=== PATIENT | female | born 1990 | race Caucasian/White ===

== ENCOUNTER 2016-12-11 00:02 | Emergency (ER) | payer OTHER ==
[~2016-12-11] VITALS: Ht 157.5 cm; Wt 72.2 kg
[~2016-12-11 00:02] MED LIST: ACET-1256 PO; DOCU-94 PO; DOXY100C2 PO; FRRS300 PO
[2016-12-11 00:09] VITALS: TEMP 36.6; Ht 157.5 cm; Wt 72.2 kg
[2016-12-11] MEDS ORDERED: ONDANSETRON INJ 2 MG/ML 2 ML VIAL IV STA (00:22)
[2016-12-11] MEDS ORDERED: SODIUM CHLORIDE 0.9% 1000ML 1,000 ML IV STA ×2 (00:22)
[2016-12-11 00:44] LABS: BASO % 0.3 %; BASO ABS # 0.03 K/uL (0-0.2); COMPLETE YES; EOS % 1.2 %; HEMATOCRIT 38.8 % (37-47); IG% 0.3 %; LYMPH % 32.5 %; MEAN CELL VOLUME 80.8 fL (80-100); MEAN CORPUSCULAR HEMOGLOBIN 27.7 pg (25-34); MEAN CORPUSCULAR HGB CONC 34.3 g/dl (32-36); MEAN PLATELET VOLUME 9.9 fL (7.4-10.4); MONO % 5.8 %; NEUT % 59.9 %; PLATELET COUNT 233 K/uL (130-400); WHITE BLOOD COUNT 9.53 K/uL (4.8-10.8)
[2016-12-11 01:20] LABS: MANUAL MICROSCOPIC REQUIRED? YES; URINE APPEARANCE TURBID (CLEAR); URINE BILIRUBIN NEG (NEG); URINE COLOR RED; URINE NITRITE NEG (NEG); URINE SPECIFIC GRAVITY 1.025 (1.000-1.030); UROBILINOGEN NEG (NEG)
[2016-12-11 01:23] LABS: BUN/CREATININE RATIO 8.5 (10-20); CALCIUM 9.3 mg/dl (8.5-10.1); CREATININE 0.63 mg/dl (0.60-1.20); POTASSIUM 3.3 mmol/L (3.5-5.1)
[2016-12-11 01:28] LABS: REVIEW REQ? NO
[2016-12-11 01:35] LABS: URINE RBC >30 /hpf (0-4)
[2016-12-11 01:37] LABS: URINE BACTERIA NEG (NEG); URINE WBC >30 /hpf (0-5)
[2016-12-11 01:38] LABS: ZZUR CULT IF INDIC CLEAN CATCH YES
--- NOTE | 2016-12-11 02:57 | EMERGENCY ROOM VISIT NOTE ---
History First contact with patient: 00:13 Chief Complaint: VAGINAL BLEEDING Stated Complaint: MISS CARRAGE History of Present Illness The patient is a 26 year old female who presents to the Emergency Room with complaints of vaginal bleeding with cramping for the past few hours who is currently approximately 6 weeks . She had a miscarriage a few months ago. She now follows at [facility]. Patient describe the pain as cramping , ranging in severity 3 out of 10. Nothing makes it better or worse. Patient complains of nausea without vomiting or diarrhea. Patient brought some of the blood products in for analysis. Patient denies chest pain, dyspnea, fever, chills, vomiting, diarrhea, back pain, urinary symptoms. No known bleeding disorders. Review of Systems See HPI for pertinent positives & negatives. A total of 10 systems reviewed and were otherwise negative. Past Medical/Surgical History Medical Problems: (1) Incomplete (2) Postop check Social History Smoking Status: Never Smoker Alcohol Use: none Drug Use: none Marital Status: in relationship Housing Status: lives with significant other Occupation Status: [employer] student Current/Historical Medications No Active Prescriptions or Reported Meds Allergies Coded Allergies: No Known Allergies (Unverified , 12/11/16) Physical Exam Vital Signs Date Time Temp Pulse Resp B/P Pulse Ox O2 Delivery O2 Flow Rate FiO2 12/11/16 01:55 85 16 103/59 100 Room Air 12/11/16 00:09 36.6 103 18 106/72 100 Room Air Physical Exam VITALS: Vitals are noted on the nurse's note and reviewed by myself. Vital signs stable. GENERAL: Pleasant tearful female, in no acute distress, nondiaphoretic, well- developed well-nourished. SKIN: Capillary reflex less than 2 seconds. HEENT: Normocephalic. PERRLA. EOMI. Nares patent. Mucous membranes moist. Neck is supple without nuchal rigidity. HEART: Regular rate and rhythm without murmurs gallops or rubs. LUNGS: Clear to auscultation bilaterally without wheezes, rales or rhonchi. No retractions or accessory muscle use. ABDOMEN: Positive bowel sounds x 4. Normal tympanic percussion. Soft, tender to palpation suprapubic area, without masses or organomegaly. Costello sign negative. No guarding or rebound tenderness. CVA tenderness exam: Normal external female genitalia, [] MUSCULOSKELETAL: No gross musculoskeletal defects. No pedal edema. NEURO: Patient was alert and oriented to person place and time. Normal sensation to light and sharp touch. No focal neurological deficits. Medical Decision & Procedures Laboratory Results 12/11/16 00:33 Red Blood Count 4.80, Mean Corpuscular Volume 80.8, Mean Corpuscular Hemoglobin 27.7, Mean Corpuscular Hemoglobin Concent 34.3, Mean Platelet Volume 9.9, Neutrophils (%) (Auto) 59.9, Lymphocytes (%) (Auto) 32.5, Monocytes (%) (Auto) 5.8, Eosinophils (%) (Auto) 1.2, Basophils (%) (Auto) 0.3, Neutrophils # (Auto) 5.71, Lymphocytes # (Auto) 3.10, Monocytes # (Auto) 0.55, Eosinophils # (Auto) 0.11, Basophils # (Auto) 0.03 12/11/16 00:33 Test 12/11/16 00:00 12/11/16 00:33 Urine Color RED Urine Appearance TURBID (CLEAR) Urine pH 6.0 (4.5-7.5) Urine Specific [place] 1.025 (1.000-1.030) Urine Protein 2+ (NEG) Urine Glucose (UA) NEG (NEG) Urine Ketones NEG (NEG) Urine Occult Blood 3+ (NEG) Urine Nitrite NEG (NEG) Urine Bilirubin NEG (NEG) Urine Urobilinogen NEG (NEG) Urine Leukocyte Esterase NEG (NEG) Urine RBC >30 /hpf (0-4) Urine WBC >30 /hpf (0-5) Urine Epithelial Cells >30 /lpf (0-5) Urine Bacteria NEG (NEG) White Blood Count 9.53 K/uL (4.8-10.8) Red Blood Count 4.80 M/uL (4.2-5.4) Hemoglobin 13.3 g/dL (12.0-16.0) Hematocrit 38.8 % (37-47) Mean Corpuscular Volume 80.8 fL (80-100) Mean Corpuscular Hemoglobin 27.7 pg (25-34) Mean Corpuscular Hemoglobin Concent 34.3 g/dl (32-36) Platelet Count 233 K/uL (130-400) Mean Platelet Volume 9.9 fL (7.4-10.4) Neutrophils (%) (Auto) 59.9 % Lymphocytes (%) (Auto) 32.5 % Monocytes (%) (Auto) 5.8 % Eosinophils (%) (Auto) 1.2 % Basophils (%) (Auto) 0.3 % Neutrophils # (Auto) 5.71 K/uL (1.4-6.5) Lymphocytes # (Auto) 3.10 K/uL (1.2-3.4) Monocytes # (Auto) 0.55 K/uL (0.11-0.59) Eosinophils # (Auto) 0.11 K/uL (0-0.5) Basophils # (Auto) 0.03 K/uL (0-0.2) RDW Standard Deviation 39.8 fL (36.4-46.3) RDW Coefficient of Variation 13.6 % (11.5-14.5) Immature Granulocyte % (Auto) 0.3 % Immature Granulocyte # (Auto) 0.03 K/uL (0.00-0.02) Anion Gap 5.0 mmol/L (3-11) Est Creatinine Clear Calc Drug Dose 127.0 ml/min Estimated GFR () 144.5 Estimated GFR (Non- 124.7 BUN/Creatinine Ratio 8.5 (10-20) Calcium Level 9.3 mg/dl (8.5-10.1) Human Chorionic Gonadotropin, Quant 52844 mIU/mL Medications Administered Medications (Trade) Dose Ordered Sig/Caron Route Start Time Stop Time Status Last Admin Dose Admin Sodium Chloride 1,000 ml @ 999 mls/hr Q1H1M STAT IV 12/11/16 00:22 12/11/16 01:22 DC 12/11/16 00:22 999 MLS/HR Sodium Chloride (Nss 1000ml) 1,000 ml @ 125 mls/hr Q8H STAT IV 12/11/16 00:22 12/11/16 08:21 12/11/16 00:22 125 MLS/HR Ondansetron HCl (Zofran Inj) 4 mg NOW STAT IV 12/11/16 00:22 12/11/16 00:25 DC 12/11/16 00:22 4 MG ED Course Prior records/ancillary studies reviewed. Triage Nursing notes reviewed. Additional history obtained from the family. The patient's history was concerning for vaginal bleeding and abdominal pain. Differential diagnosis: Etiologies such as ectopic , miscarriage, , dysfunction uterine bleeding, bleeding dyscrasia, trauma, infection, as well as others were entertained. Physical examination: As above. Vitals signs revealed stable. ER treatment provided: IV fluids, Zofran On reassessment the patient felt better. Diagnostic interpretation by me: The labs revealed the patient to the Rh neg, O-. CBC, coagulation studies, and chemistries were unremarkable. Urinalysis revealed no sign of infection. Quantitative hCG was [address] Imaging studies: Ultrasound US PELVIC/OB: Single live intrauterine with estimated gestational age of 7 weeks and 3 days. Normal heart tones measuring up to 162 bpm. Abnormal appearance of the yolk sac, which is nonspecific. Attention on follow- up. Subchorionic hemorrhage measuring up to 2.2 cm. The cervix is long and closed measured 3.3 cm. Probable corpus luteum within the right ovary measuring up to 3.7 cm. Otherwise the ovaries are unremarkable. No torsion. Trace free fluid in the pelvis. Radiologist: Barrera Howard MD Consultation: A consultation was placed with the wood veneer taper physician, Dr Last. The case was discussed and diagnostics were reviewed. He recommends discharge and follow-up in clinic in 2-3 days. This appears to be consistent with threatened miscarriage. Patient was neurovascularly and neurologically intact. Antibody screen was negative. Stable H&H. She did not have an acute abdomen on exam. She had minimal bleeding. She is advised to follow-up with OB in a few days or here in the ER sooner for heavy bleeding, fevers, vomiting, pain, worsening signs or symptoms or as needed. She is advised no heavy activity or intercourse until cleared by OB. By the evaluation outlined above emergent etiologies such as bleeding dyscrasia, ectopic , trauma, as well as others were deemed relatively unlikely. The pt informed about the findings as listed above. All questions were answered and pleased with the treatment. Return instructions were outlined and the patient was discharged in stable condition. Outpatient prescription management: zofran Referral: The patient was referred to parts cataloguer for follow-up in 2 to 3 days for a recheck of her current condition. case reviewed with my Attending Medical Decision As above Impression Primary Impression: Threatened miscarriage Departure Information Dispostion Home / Self-Care Condition GOOD Prescriptions No Active Prescriptions or Reported Meds Referrals No Doctor, Assigned (PCP) Patient Instructions My [facility] Additional Instructions Rest. Stay well hydrated. No strenuous activity or intercourse until cleared by HEEL CASER. Zofran 4 tablet every 6 hours as needed for nausea and vomiting. Acetaminophen(Tylenol) may be used for fever or pain. Use 1000mg every six hours as needed. Avoid using more than 3000mg in a 24 hour period. Rest and drink plenty of fluids as tolerated. Continue current medications. Return to the ER immediately for worsening or persistent heavy vaginal bleeding , abdominal pain, vomiting, fevers, chest pains, difficulty breathing, worsening of your condition, or as needed. Follow up with your HEEL CASER in 2-3 days for a recheck of your current condition.
[2016-12-11] MEDS ORDERED: ONDANSETRON HOME PACK 4MG OD TAB PO ONE (03:00)
[2016-12-11 03:07] VITALS: BP 97/52; PULSE 73; O2SAT 99
--- NOTE | 2016-12-11 07:26 | DIAGNOSTIC IMAGING REPORT ---
ULTRASOUND OF THE PELVIS CLINICAL HISTORY: . Pelvic pain. Vaginal bleeding. COMPARISON STUDY: Pelvic ultrasound dated 08/10/2016. TECHNIQUE: Real-time, grayscale, and color flow sonography of the pelvis is performed both transabdominally and endovaginally. Images are reviewed in the transverse and longitudinal planes. FINDINGS: Uterus: The uterus is normal in size and echotexture, measuring 10.4 x 5.5 x 7.0 cm. Gestation: There is a single live intrauterine gestation assessment heart rate of 152 bpm. The crown-rump length measures 1.28 cm, corresponding to an estimate age of 7 weeks 3 days. The mean gestational sac diameter measures 2.67 cm which corresponds to an estimated age of 7 weeks 3 days. Trace subchorionic hemorrhage is identified measuring up to 1.2 cm. Aortic sac is identified and appears irregular. Ovaries: The ovaries are normal in size and morphology. The right ovary measures 5.2 x 2.6 x 3.8 cm and the left ovary measures 3.6 x 1.9 x 2.8 cm. A corpus luteum is noted on the right. Normal Doppler waveforms are shown within both ovaries. Pelvis: There is trace free fluid in the cul-de-sac. No concerning adnexal lesion is seen. IMPRESSION: 1. There is a single live intrauterine gestation with an estimated age of 7 weeks 3 days by crown-rump length measurement. 2. There is irregularity of the yolk sac which is nonspecific. 3. Trace subchorionic hemorrhage is noted. 4. The ovaries are normal as visualized noting a corpus luteum on the right. 5. There is trace free fluid in the cul-de-sac. Electronically signed by: Luis Fernando Sousa M.D. 12/11/2016 7:23 AM Dictated Date/Time: 12/11/2016 7:20 AM
== END 2016-12-11 03:14 | disposition home or self-care (01) ==
LOC: C.EDB 00:04 → C.EDA 03:14
DX: O20.0 Threatened abortion (principal); Z87.59 Personal history of other complications of pregnancy, childbirth and the puerperium; R11.0 Nausea

== ENCOUNTER → 2016-12-26 | Outpatient (CLI) | payer OTHER ==
[~2016-12-26] MED LIST changes: -ACET-1256 PO; -DOCU-94 PO; -DOXY100C2 PO; +FLUT0.15 NAE; -FRRS300 PO; +LORA24TA7 PO; +PRENTAB26 PO
[2016-12-26 15:46] LABS: BASO % 0.3 %; BASO ABS # 0.03 K/uL (0-0.2); COMPLETE YES; EOS % 0.9 %; HEMATOCRIT 38.8 % (37-47); IG% 0.1 %; LYMPH % 22.2 %; LYMPH ABS # 2.04 K/uL (1.2-3.4); MEAN CELL VOLUME 84.3 fL (80-100); MEAN CORPUSCULAR HEMOGLOBIN 28.3 pg (25-34); MEAN CORPUSCULAR HGB CONC 33.5 g/dl (32-36); MEAN PLATELET VOLUME 10.1 fL (7.4-10.4); MONO % 5.3 %; NEUT % 71.2 %; PLATELET COUNT 249 K/uL (130-400); WHITE BLOOD COUNT 9.18 K/uL (4.8-10.8)
[2016-12-26 16:42] LABS: URINE APPEARANCE CLEAR (CLEAR); URINE BILIRUBIN NEG (NEG); URINE COLOR YELLOW; URINE EPITHELIAL CELL AUTO >30 /lpf (0-5); URINE NITRITE NEG (NEG); URINE SPECIFIC GRAVITY 1.023 (1.000-1.030); UROBILINOGEN NEG (NEG)
[2016-12-26 16:52] LABS: MANUAL MICROSCOPIC REQUIRED? NO; REVIEW REQ? NO
[2017-01-03 19:52] LABS: CHLAMYDIA TRACH RNA*** NOT DETECTED (NOT DETECTED); GC (NEIS GONORRHOEAE)RNA** NOT DETECTED (NOT DETECTED)
== END | disposition home or self-care (01) ==
LOC: C.LAB1850 14:47
PROVIDERS: ATTEND Obstetrics & Gynecology
DX: O09.299 Supervision of pregnancy with other poor reproductive or obstetric history, unspecified trimester (principal)

== ENCOUNTER 2017-01-24 00:49 | Emergency (ER) | payer OTHER ==
[~2017-01-24] VITALS: Ht 158.8 cm; Wt 71.5 kg
[2017-01-24 00:53] VITALS: Ht 158.8 cm; Wt 71.5 kg
[2017-01-24] MEDS ORDERED: FLUT0.15 NAE (01:02)
[2017-01-24] MEDS ORDERED: PRENTAB26 PO (01:02)
[2017-01-24] MEDS ORDERED: LORA24TA7 PO (01:02)
[2017-01-24 02:29] LABS: URINE APPEARANCE CLEAR (CLEAR); URINE BILIRUBIN NEG (NEG); URINE COLOR YELLOW; URINE NITRITE NEG (NEG); URINE PH 6.5 (4.5-7.5); UROBILINOGEN NEG (NEG); ZZUR CULT IF INDIC CLEAN CATCH NO
[2017-01-24 02:32] LABS: MANUAL MICROSCOPIC REQUIRED? NO; REVIEW REQ? NO
--- NOTE | 2017-01-24 03:01 | EMERGENCY ROOM VISIT NOTE ---
History Report prepared by Eugene: Kamron Noguera Under the Supervision of: Dr. Telly Persaud M.D. First contact with patient: 00:58 Chief Complaint: ED VAG BLEEDING Stated Complaint: BLEEDING - 14 WKS History of Present Illness The patient is a 26 year old female who presents to the Emergency Room with complaints of constant vaginal bleeding beginning just prior to arrival. She is 14 weeks . She has been seen in the ED twice during this for similar symptoms. The patient notes that she had a miscarriage five months ago, and feels that she has been very anxious since. She also complains of nausea which began following the bleeding. She denies any urinary symptoms, or leg swelling. The patient denies any recent falls or trauma. She notes that she was seen by her OBGYN less than a week ago. She states that she has not felt the baby moving yet. Source of History: patient Onset: Just prior to arrival Position: other (vagina) Quality: other (bleeding) Timing: constant Associated Symptoms: + nausea, No urinary symptoms Note: The patient denies any leg swelling. Review of Systems See HPI for pertinent positives & negatives. A total of 10 systems reviewed and were otherwise negative. Past Medical & Surgical Medical Problems: (1) Incomplete (2) Postop check Family History No pertinent family history stated. Social History Smoking Status: Never Smoker Alcohol Use: none Drug Use: none Marital Status: in relationship Housing Status: lives with significant other Occupation Status: [employer] student Current/Historical Medications Scheduled Fluticasone Propionate (Nasal) (Flonase Allergy Relief), 1-2 SPRAYS [place] DAILY Multivit/Min/Iron/Fol Ac/Pren ( Vitamin), 1 TAB PO DAILY Scheduled PRN Loratadine/Pseudoephedrine (Claritin-D 24 Hour), 1 TAB PO DAILY PRN for Nasal Congestion Allergies Coded Allergies: No Known Allergies (Unverified , 01/24/17) Physical Exam Vital Signs Date Time Temp Pulse Resp B/P Pulse Ox O2 Delivery O2 Flow Rate FiO2 01/24/17 03:05 36.7 78 16 98/57 98 01/24/17 03:01 36.7 78 16 98/57 98 Room Air 01/24/17 02:22 74 16 99/57 100 Room Air 01/24/17 00:53 36.7 92 18 113/71 100 Room Air Physical Exam GENERAL: Patient is mildly anxious appearing and in minimal distress. HEENT: No acute trauma, normocephalic atraumatic, mucous membranes moist, no nasal congestion, no scleral icterus. NECK: No stridor, no adenopathy, no meningismus, trachea is midline. LUNGS: No dyspnea. Clear to auscultation and equal bilaterally. No wheeze, no rhonchi. HEART: Regular rate and rhythm. No murmurs, rubs, gallops appreciated. ABDOMEN: Soft, nontender, bowel sounds positive, no masses appreciated, no peritonitis. BACK: No midline tenderness, no CVA tenderness EXTREMITIES: Normal motion all extremities, no cyanosis, no edema. NEUROLOGIC: Alert and oriented, no acute motor or sensory deficits, no focal weakness, cranial nerves grossly intact. SKIN: No rash, no jaundice, no diaphoresis. Medical Decision & Procedures Laboratory Results Test 01/24/17 02:00 Urine Color YELLOW Urine Appearance CLEAR (CLEAR) Urine pH 6.5 (4.5-7.5) Urine Specific [place] 1.010 (1.000-1.030) Urine Protein NEG (NEG) Urine Glucose (UA) NEG (NEG) Urine Ketones NEG (NEG) Urine Occult Blood 3+ (NEG) Urine Nitrite NEG (NEG) Urine Bilirubin NEG (NEG) Urine Urobilinogen NEG (NEG) Urine Leukocyte Esterase TRACE (NEG) Urine WBC (Auto) 1-5 /hpf (0-5) Urine RBC (Auto) 10-30 /hpf (0-4) Urine Hyaline Casts (Auto) 0 /lpf (0-5) Urine Epithelial Cells (Auto) 10-20 /lpf (0-5) Urine Bacteria (Auto) NEG (NEG) Laboratory results as reviewed by me. ED Course 0102: The patient was evaluated in room A2. A complete history and physical exam was performed. 0110: Bedside ultrasound shows normal movement. Heart rate of 157. 0135: I reassessed the patient. She feels much better. 0255: Reevaluated the patient. She feels good and has not had any bleeding. She would like to go home. Discussed results and discharge instructions: she verbalized understanding and agreement. The patient is ready for discharge. Medical Decision 26 yr old female arrives following vaginal bleeding at 14wks . This started after intercourse this evening. Bedside US with IUP with + movement and + FHR. Bleeding resolved while here and feeling well. O neg blood type with Rhogham given 6-8 weeks ago. Discussed with OB who agree no need for further Rhogham currently. Patient calmed down and feeling better. UA negative other than blood. Stable and comfortable with going home. Vitals good and she is to RTED immediately if worsening. Advised follow up with OB. Consults Time Called: [phone] Consulting Physician: Dr. Lal -OBITALIA Returned Call: [phone] Discussed the patient's case. Dr. Lal agrees that the patient does not currently require Rhogam. He agrees with holding off on the pelvic exam for the moment. He recommends that the patient follow up in the clinic in the next few days. Impression Primary Impression: Vaginal bleeding in Scribe Attestation The scribe's documentation has been prepared under my direction and personally reviewed by me in its entirety. I confirm that the note above accurately reflects all work, treatment, procedures, and medical decision making performed by me. Departure Information Dispostion Home / Self-Care Referrals No Doctor, Assigned (PCP) Patient Instructions Bleeding Early Preg, My [facility] Problem Qualifiers Primary Impression: Vaginal bleeding in Trimester: second trimester Qualified Codes: O46.92 - Antepartum hemorrhage , unspecified, second trimester
[2017-01-24 03:05] VITALS: BP 98/57; PULSE 78; TEMP 36.7; O2SAT 98
== END 2017-01-24 03:06 | disposition home or self-care (01) ==
LOC: C.EDB 00:50 → C.EDA 03:06
DX: O46.92 Antepartum hemorrhage, unspecified, second trimester (principal); Z3A.14 14 weeks gestation of pregnancy

== ENCOUNTER → 2017-02-22 | Outpatient (CLI) | payer OTHER ==
[2017-02-22 18:43] LABS: GTGD 50 Grams
== END | disposition home or self-care (01) ==
LOC: C.LAB1850 15:19
PROVIDERS: ATTEND Obstetrics & Gynecology
DX: O09.299 Supervision of pregnancy with other poor reproductive or obstetric history, unspecified trimester (principal); Z3A.00 Weeks of gestation of pregnancy not specified

== ENCOUNTER → 2017-05-04 | Outpatient (CLI) | payer OTHER ==
[2017-05-04 14:26] LABS: URINE APPEARANCE CLEAR (CLEAR); URINE BILIRUBIN NEG (NEG); URINE COLOR YELLOW; URINE EPITHELIAL CELL AUTO 20-30 /lpf (0-5); URINE NITRITE NEG (NEG); URINE SPECIFIC GRAVITY 1.013 (1.000-1.030); UROBILINOGEN NEG (NEG)
[2017-05-04 14:33] LABS: MANUAL MICROSCOPIC REQUIRED? NO; REVIEW REQ? NO
[2017-05-04 14:39] LABS: HEMATOCRIT 34.1 % (37-47)
[2017-05-04 15:15] LABS: GTGD 50 Grams
== END | disposition home or self-care (01) ==
LOC: C.LAB1850 11:52
PROVIDERS: ATTEND Obstetrics & Gynecology
DX: Z34.92 Encounter for supervision of normal pregnancy, unspecified, second trimester (principal)

== ENCOUNTER → 2017-05-16 | Outpatient (CLI) | payer OTHER | END | disposition home or self-care (01) | LOC: C.LAB1850 08:00 | PROVIDERS: ATTEND Obstetrics & Gynecology | DX: O28.1 Abnormal biochemical finding on antenatal screening of mother (principal); Z3A.00 Weeks of gestation of pregnancy not specified ==

== ENCOUNTER 2017-07-17 16:32 | Inpatient (IN) | payer OTHER ==
[~2017-07-17] VITALS: Ht 160 cm; Wt 88.5 kg
[2017-07-17 16:51] VITALS: Ht 160 cm; Wt 88.5 kg
[2017-07-17] MEDS ORDERED: LACTATED RINGER'S 1000ML 1,000 ML IV PRN (17:12)
[2017-07-17] MEDS ORDERED: PENICILLIN G POTASSIUM IV 3 MU in DEXTROSE 5% 100ML 100 ML IV PRN (17:15)
[2017-07-17] MEDS ORDERED: PENICILLIN G POTASSIUM IV 6 MU in DEXTROSE 5% 250ML 250 ML IV ONE (17:30)
[2017-07-17] MEDS: LACTATED RINGER'S 1000ML 1,000 ML IV SCH ×2 (17:46→21:35)
[2017-07-17] MEDS ORDERED: EpHEDrine SULFATE INJ 50 MG/ML AMP ONE (18:57)
[2017-07-17] MEDS ORDERED: BUPIVACAINE 0.25% 30 ML VIAL ONE (18:57)
[2017-07-17] MEDS ORDERED: FENTANYL 2MCG/ML ROPIV 1.25MG/ML 100ML BAG EPI ONE (18:58)
[2017-07-17] MEDS ORDERED: FENTANYL CITRATE INJ 50 MCG/1 ML 2 ML VIAL ONE (18:58)
[2017-07-17] MEDS ORDERED: LACTATED RINGER'S 1000ML 500 ML IV PRN (19:44)
[2017-07-17] MEDS ORDERED: EpHEDrine SULFATE INJ 50 MG/ML AMP IV PRN (19:45)
[2017-07-17] MEDS ORDERED: NALOXONE HCL INJ 0.4 MG/1 ML VIAL/CARP IV PRN (19:45)
[2017-07-17] MEDS ORDERED: FENTANYL 2MCG/ML ROPIV 1.25MG/ML 100ML BAG EPI PRN (19:45)
[2017-07-18] VITALS (8 sets, daily range): BP systolic 94–112; BP diastolic 57–76; PULSE 72–98; TEMP 36.5–37; O2SAT 97–99
[2017-07-18] MEDS ORDERED: OXYTOCIN 30 UNITS/500ML NSS IV ONE (00:24)
[2017-07-18] MEDS ORDERED: ACETAMINOPHEN 325 MG TAB PO PRN (01:15)
[2017-07-18] MEDS ORDERED: BENZOCAINE 20% AER SPR 82.5 GM CAN EXT PRN (01:15)
[2017-07-18] MEDS ORDERED: LANOLIN OINT EXT PRN ×2 (01:15)
[2017-07-18] MEDS ORDERED: OXYTOCIN 30 UNITS/500ML NSS IV PRN (01:15)
[2017-07-18] MEDS ORDERED: SUPERCREAM 0.870 % 15GM JAR EXT PRN (01:15)
[2017-07-18] MEDS: IBUPROFEN 600 MG TAB PO PRN ×6 (01:33→23:40)
--- NOTE | 2017-07-18 02:13 | DELIVERY SUMMARY ---
DATE OF OPERATION: 07/18/2017 The patient is a 27-year-old 1 para 0 white female who presented at 38-4/7 weeks with rupture of membranes with meconium. She progressed in spontaneous labor and at full dilation pushed effectively over intact perineum. Delivery of a viable female with double nuchal cord that was reduced prior to delivery of the rest of the infant. 's mouth and nasopharynx were suctioned upon delivery of the head. The was placed on the mother's abdomen but there was poor respiratory effort and poor tone. Cord was clamped and cut and handed off to the nursery staff who was in attendance. The heart rate remained above 120 but required positive pressure ventilation for approximately 4 minutes. There was then spontaneous cry in increasing tone and in color. The placenta was expressed intact with a 3-vessel cord after obtaining a cord blood. bleeding was controlled with dilute Pitocin and fundal massage. Estimated blood loss was 400 mL. There was superficial abrasion of the perineum otherwise the perineum is intact. Mother and were doing satisfactory at the end of the case. After the delivery, the was taken to the nursery for further evaluation. I attest to the content of the Intraoperative Record and any orders documented therein. Any exception s are noted below.
--- NOTE | 2017-07-18 07:31 | Progress Note ---
Subjective Jul 18, 2017. Subjective conversation w/ patient, physical exam Ambulation: ambulating normally Voiding: no voiding problems Passing Gas: Yes Diet Tolerance: Regular Diet Lochia: Moderate Feeding Type: Breast Feeding Pain: controlled with ibuprofen Review of Systems Constitutional: No fever, No chills, No sweats, No weight loss, No weakness, No fatigue, No problem reported Breast: No see HPI, No breast lump, No change in shape, No nipple discharge, No breast pain, No problem reported Abdomen: No pain, No nausea, No vomiting, No diarrhea, No constipation, No GI bleeding, No problem reported Female : No see HPI, No dysuria, No urinary frequency, No hematuria, No incontinence, No abnormal vaginal bleeding, No vaginal discharge, No problem reported Objective Vital Signs Date Time Temp Pulse Resp B/P (MAP) Pulse Ox O2 Delivery O2 Flow Rate FiO2 07/18/17 05:15 72 98/61 (73) 07/18/17 03:35 97 Room Air 07/18/17 03:35 37.0 75 16 94/57 (69) 97 Room Air Physical Exam General Appearance: WELL-APPEARING, NO APPARENT DISTRESS Abdomen: non tender, soft Fundus: Firm, Non-Tender, Relation to Umbilicus (2 below U) Extremities: no calf tenderness Assessment and Plan Problem List Medical Problems: (1) Miscarriage Status: Acute (2) Threatened Status: Acute (3) Threatened miscarriage Status: Acute (4) Vaginal bleeding in Status: Acute Day#: 1 Continue Routine Care: stable course' continue current care plan.
--- NOTE | 2017-07-18 08:03 | Anesthesia Procedure Note ---
Anesthesia Epidural Removal Nt Date & Time Jul 18, 2017 at 08:03 Vital Signs Pain Intensity: 6.0 Vital Signs Past 12 Hours Date Time Temp Pulse Resp B/P (MAP) Pulse Ox O2 Delivery O2 Flow Rate FiO2 07/18/17 05:15 72 98/61 (73) 07/18/17 03:35 97 Room Air 07/18/17 03:35 37.0 75 16 94/57 (69) 97 Room Air Notes Mental Status: alert / awake / arousable, participated in evaluation Nausea / Vomiting: adequately controlled Pain: adequately controlled Airway Patency, RR, SpO2: stable & adequate BP & HR: stable & adequate Hydration State: stable & adequate Neuraxial Anesthesia: was administered, sensory block is resolving Anesthetic Complications: no major complications apparent, pt satisfied with anesthetic care Epidural: removed without complications, with tip intact
[2017-07-18] MEDS: DOCUSATE SODIUM 100 MG CAP PO SCH ×2 (08:22→19:37)
[2017-07-18] MEDS: PRENATAL VITAMIN TAB PO SCH (08:22)
[2017-07-19] MEDS: IBUPROFEN 600 MG TAB PO PRN ×5 (03:32→20:05)
--- NOTE | 2017-07-19 06:36 | OB/GYN Progress Note ---
ABSTRACT CLERK Progress Note Date of Service Jul 19, 2017. Subjective conversation w/ patient (bleeding improved since yesterday ), physical exam, chart review, lab review Ambulation: ambulating normally Voiding: no voiding problems Passing Gas: Yes Diet Tolerance: Regular Diet Lochia: Small Feeding Type: Breast Feeding Pain: mild pain Review of Systems Constitutional: No fever, No chills Respiratory: No shortness of breath Cardiac: No chest pain Abdomen: No nausea, No vomiting Female : No dysuria Objective Vital Signs Date Time Temp Pulse Resp B/P (MAP) Pulse Ox O2 Delivery O2 Flow Rate FiO2 07/18/17 23:35 36.6 98 18 110/71 (84) Room Air 07/18/17 23:35 Room Air 07/18/17 19:15 36.6 93 20 107/69 (82) Room Air 07/18/17 15:45 Room Air 07/18/17 15:45 36.7 77 20 103/64 (77) 98 Room Air 07/18/17 12:30 36.5 87 18 112/76 (88) 99 Room Air 07/18/17 09:42 99 Room Air 07/18/17 08:10 36.5 92 16 109/70 (83) 99 Room Air 07/18/17 08:00 Room Air Physical Exam General Appearance: WELL-APPEARING Respiratory/Chest: lungs clear, normal breath sounds Cardiovascular: regular rate, rhythm Abdomen: normal bowel sounds, non tender, soft Fundus: Firm, Relation to Umbilicus (1 FB below) Extremities: non-tender, no pedal edema Laboratory Results Last 24 Hours Test 07/19/17 04:44 Assessment and Plan Day Number: 1 Continue Routine Care: A/P: This is a 27 y/o female, , s/p [normal vaginal delivery] day 1. She is ambulating and clinically stable. Plan: - Vitals signs are reviewed and WNL (Tmax 36.7 ) - Last Hgb is 8.7. Pt encouraged to take iron - Blood type O- (AB screen +; baby O+; rhogham ordered), GBS pos, Rubella Immune - Routine care - Encourage ambulation, monitor and control pain with medication as needed, continue with regular diet as tolerated and monitor lochia - Stool softeners and sitz bath recommended - Encourage breast feeding and educate about breast feeding Resident Physician Supervision Note: I interviewed and examined the patient. Discussed with Dr. Baker and agree with findings and plan as documented in the note. Any exceptions or clarifications are listed here: None Documented By: Hakan Lal Resident Involvement: Resident Care Provided Care Provided: OB Delivery
[2017-07-19 06:44] LABS: HEMATOCRIT 27.5 % (37-47)
--- NOTE | 2017-07-19 06:46 | Discharge Instructions ---
Discharge Instructions Date of Service Jul 19, 2017. Admission Reason for Admission: Check Labor Discharge Discharge Diagnosis / Problem: after vaginal delivery Discharge Goals Goal(s): Routine recovery after delivery Medications Continue Dispensed Medications: supercream, dermaplast, tucks, lansinoh Activity Recommendations Activity Limitations: per Instructions/Follow-up section . Instructions / Follow-Up Instructions / Follow-Up ACTIVITY RECOMMENDATIONS: * Gradual return to full activity over the next 2-3 weeks. * No lifting - nothing heavier than baby over the next 2-3 weeks. * Do not engage in vigorous exercise, sexual activity or sports until cleared by your physician. * Do not drive or operate any motorized equipment until cleared by your physician. * You may shower/bathe daily. MEDICATIONS: For discomfort or pain, you may use Acetaminophen (Tylenol), Ibuprofen (Advil), or Naproxen (Aleve) following the package directions. For constipation you may use Colace following the package directions. BREAST CARE: If you are not breast feeding: * Wear a supportive bra 24 hours a day for one to two weeks. * Avoid stimulating your breasts and nipples as much as possible during the first few weeks after delivery. * When taking a shower, have the warm water hit your back, not breasts. * When your breasts feel full, apply ice packs. Usually three to four times a day helps ease the discomfort. * Take a mild pain medication (Tylenol / Motrin) when you are uncomfortable. If breast feeding: * Use breast milk to lubricate nipples. Lansinoh cream may be used for sore nipples. You do not need to remove cream prior to breast feeding. If using a different brand of cream, check the label for directions regarding removal of cream prior to nursing. * Wear a supportive bra. * If having problems with breasts or breast feeding, call a jd edwards consultant or your health care provider. EPISIOTOMY CARE: After delivery, if you have an episiotomy (stitches), the following steps will ease discomfort and aid healing. * For the first 24 hours after delivery, place ice packs next to your episiotomy to help reduce swelling. * After the first 24 hour-period, sitz baths, either portable or in the tub, are suggested. A shower with a shower arm sprayed over the episiotomy may be comforting. * Janay care should be done after each voiding and bowel movement. Squirt warm water from a plastic bottle over the perineum (region of the body between the anus and urinary opening) and pat dry. * Use Dermoplast to ease discomfort. Shake container. [place] directly over the episiotomy. Place a Tucks on a clean sanitary pad next to your episiotomy. SPECIAL CARE INSTRUCTIONS: When you are discharged from the hospital, it is important for you to follow the instructions listed below: * During the first week at home, you should be able to care for yourself and your baby. In addition, the usual light household activities are encouraged. * Limit your activities to the way you feel. Do not try to clean the house or move furniture. Be sensible. * If you actively engage in sports and have done so up until the time of your delivery, you may resume these activities as soon as you feel able. This may take up to one month or even longer. Use good judgment. * Continue to take your vitamins for at least six weeks after the of your baby. * Your diet need not be limited unless you were on a special diet before your delivery. Breast-feeding mothers need around 2500 calories per day and at least 64-80 ounces of fluid per day (8 to 10 glasses). * You should eat foods from the four major food groups. Crash diets or fad diets are to be avoided. Eating lean meats, fresh fruits and vegetables, low-fat dairy products, high fiber foods and a regular exercise program, will help you get back to your pre- weight without putting your health at risk. * Constipation is sometimes a problem after delivery. Take a mild laxative as needed. If breast feeding, Milk of Magnesia is acceptable to use. You may use a suppository or Fleets enema if no episiotomy. * A daily shower or tub bath is suggested. Be sure to thoroughly and gently dry the perineum. * A bloody vaginal discharge will usually continue until around four weeks post . A small amount of bleeding may continue for as long as six weeks. Vaginal discharge changes from the bright red bleeding after delivery to pink then brownish and finally yellowish-pink before becoming white and disappearing. * Bleeding may increase with activity. Your first period may come in 4-8 weeks. If you are breast feeding, your period may be delayed even longer. * Ingram (sex) can begin whenever both you and your partner feel comfortable and do not have any form of genital infection. It is recommended that you wait at least six weeks for internal and external healing to occur. If you have questions, please talk to your health care practitioner. A condom should be used to prevent infection and . * Foreplay, gentle intercourse and lubrication is very important the first several times to prevent pain. A water-based lubricant such as K-Y jelly or Astroglide may be used. * If you have RH negative blood and your baby is RH positive, you will receive RHOGAM by injection prior to discharge. The nurse will give you a card to keep with you that has the date and place that you received RHOGAM after delivery. * During your care, you had a Rubella screen done to check for the presence of rubella antibodies in your blood. If your test was negative, you will receive a Rubella vaccine prior to discharge. This vaccine may cause a fever, soreness at the injection site and flu-like symptoms. If these symptoms persist, notify your health care practitioner. is not advised for one month after a Rubella vaccine. * Verbalizes understanding of car seat law as reviewed with patient nursing. * Car Seat hand-out given and reviewed with patient by nursing. * Shaken baby information reviewed with patient by nursing. Call you doctor if: * Heavy bleeding (saturating several pads an hour) or passing clots the size of your fist. * A fever >101 degrees F (38.3 degrees C) on two occasions four hours apart and /or chills. * Unusual pain in the pelvic or vaginal areas. * "Baby Blues" lasting longer than two weeks. If you have any questions or concerns, call your health care practitioner at . FOLLOW UP VISIT: * Please call the office at to schedule a 6 week examination. It is important you keep this appointment. It is important for you to make arrangements for either yearly or twice yearly check-ups thereafter. Current Hospital Diet Patient's current hospital diet: Regular OB Diet Discharge Diet Recommended Diet: Regular Diet Pending Studies Studies pending at discharge: no Medical Emergencies . Who to Call and When: Medical Emergencies: If at any time you feel your situation is an emergency, please call 911 immediately. . Non-Emergent Contact Non-Emergency issues call your: Primary Care Provider, Grants Manager Call Non-Emergent contact if: temperature is above 101, your pain is not controlled . . "Provider Documentation" section prepared by Alcira Baker. . VTE Core Measure Inpt VTE Proph given/why not?: Treatment not indicated
[2017-07-19 07:30] VITALS: BP 117/70; PULSE 88; TEMP 36.6; O2SAT 98
[2017-07-19] MEDS: DOCUSATE SODIUM 100 MG CAP PO SCH ×2 (07:57→20:04)
[2017-07-19] MEDS: PRENATAL VITAMIN TAB PO SCH (07:57)
[2017-07-19 16:00] VITALS: BP 104/66; PULSE 87; TEMP 36.5
[2017-07-20] VITALS: BP 109/82; PULSE 81; TEMP 36.6
[2017-07-20] MEDS: IBUPROFEN 600 MG TAB PO PRN ×3 (00:41→08:15)
--- NOTE | 2017-07-20 06:44 | OB/GYN Progress Note ---
[employer] Progress Note Date of Service Jul 20, 2017. Subjective conversation w/ patient, physical exam, chart review, lab review Ambulation: ambulating normally Voiding: no voiding problems Passing Gas: Yes Diet Tolerance: Regular Diet Lochia: Small Feeding Type: Breast Feeding Pain: mild pain Review of Systems Constitutional: No fever, No chills Respiratory: No shortness of breath Cardiac: No chest pain Abdomen: No nausea, No vomiting Female : No dysuria Objective Vital Signs Date Time Temp Pulse Resp B/P (MAP) Pulse Ox O2 Delivery O2 Flow Rate FiO2 07/20/17 00:00 Room Air 07/20/17 00:00 36.6 81 18 109/82 (91) Room Air 07/19/17 16:00 Room Air 07/19/17 16:00 36.5 87 18 104/66 (79) Room Air 07/19/17 07:30 Room Air 07/19/17 07:30 36.6 88 16 117/70 (86) 98 Room Air Physical Exam General Appearance: WELL-APPEARING Respiratory/Chest: lungs clear, normal breath sounds Cardiovascular: regular rate, rhythm Abdomen: normal bowel sounds, non tender, soft Fundus: Firm, Relation to Umbilicus (2 FB below) Extremities: non-tender, no pedal edema Assessment and Plan Day Number: 2 Continue Routine Care: A/P: This is a 27 y/o female, , s/p [normal vaginal delivery] day 2. She is ambulating and clinically stable. Plan: - Vitals signs are reviewed and WNL (Tmax 36.7 ) - Last Hgb is 8.7. Pt encouraged to take iron - Blood type O- (baby O+; rhogham administered 07/19), GBS pos, Rubella Immune - No signs of depression. - Routine care - Discussed resting, feeding, pain control, mastitis, control, follow up in 6 weeks and reasons to call sooner, if necessary. - Continue with pain medication as needed, and continue vitamins. - Encourage breast feeding and educate about breast feeding - Patient understands and keen for home. - Plan to discharge home Resident Physician Supervision Note: I interviewed and examined the patient. Discussed with Dr. Baker and agree with findings and plan as documented in the note. Any exceptions or clarifications are listed here: Plan d/c. Instructions reviewed. Documented By: Senia Subramanian Resident Involvement: Resident Care Provided Care Provided: OB Delivery
[2017-07-20 07:10] VITALS: BP 105/67; PULSE 70; TEMP 36.5; O2SAT 99
[2017-07-20] MEDS: PRENATAL VITAMIN TAB PO SCH (08:14)
[2017-07-20] MEDS: DOCUSATE SODIUM 100 MG CAP PO SCH (08:14)
[2017-07-20 10:35] VITALS: BP_DIAS 67; PULSE 70; TEMP 36.5
== END 2017-07-20 11:35 | disposition home or self-care (01) | DRG 775 ==
LOC: C.OPB 16:32 → C.LD 16:32 → C.OPB 17:15 → C.LD 17:15 → C.OBG 07-18 03:29
PROVIDERS: ADMIT Obstetrics & Gynecology; ATTEND Obstetrics & Gynecology
PROC: 10E0XZZ Delivery of Products of Conception, External Approach (ICD-10-PCS; principal; 2017-07-18)
DX: O77.0 Labor and delivery complicated by meconium in amniotic fluid (principal); O69.81X0 Labor and delivery complicated by cord around neck, without compression, not applicable or unspecified; Z22.330 Carrier of Group B streptococcus; Z3A.38 38 weeks gestation of pregnancy; Z37.0 Single live birth